=== PATIENT | female | born 2000 | race Hispanic/Latino ===

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

== ENCOUNTER 2018-04-06 13:38 | Emergency (ER) | payer SELFPAY ==
[~2018-04-06] VITALS: Ht 154.9 cm; Wt 72.6 kg
[~2018-04-06 13:38] MED LIST: MACROBID 100 M100 MG PO
--- NOTE | 2018-04-06 15:30 | ED GI/GU/ABDOMINAL COMPLAINT ---
History of Present Illness General Chief Complaint: Female Urogenital Problems Stated Complaint: VAGINAL DISCHARGE W/ODOR Source: patient Exam Limitations: no limitations Vital Signs & Intake/Output Vital Signs & Intake/Output Vital Signs Date Time Temp Pulse Resp B/P B/P Pulse O2 O2 Flow FiO2 Mean Ox Delivery Rate 04/06 1625 98.4 73 17 111/72 100 Room Air 04/06 1346 98.3 84 20 116/70 100 Room Air Allergies Coded Allergies: amoxicillin (Severe, THROAT SWELLING, RASH 04/12/17) Uncoded Allergies: DETERGENTS (UNKNOWN 08/09/12) Reconcile Medications Metronidazole (Flagyl) 500 MG TABLET 1 TAB PO BID vaginosis Triage Note: C/O VAGINAL D/C X 5 DAYS WITH ODOR Triage Nurses Notes Reviewed? yes ? n Is pt currently ? No Onset: Gradual Duration: day(s): Timing: recent history Quality/Severity: moderate HPI: 17yo female presents emergency department complaining of vaginal odor and discharge past few days. Patient reports increasing vaginal discharge described as reyes, mucus. Patient also reports itching. She is complaining of "fishy" odor. Patient reports changing her soaps recently. The patient reports dysuria on one occasion earlier this week which has since resolved. The patient is sexually active, one new partner, no use of protection. Patient denies abdominal pain, fevers, chills, joint pains. (Celena Egan) Past History Travel History Traveled to [place] past 21 day No Medical History Any Pertinent Medical History? 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 No (Celena Egan) Review of Systems Review of Systems Constitutional: Reports: no symptoms. EENTM: Reports: no symptoms. Respiratory: Reports: no symptoms. Cardiovascular: Reports: no symptoms. GI: Reports: no symptoms. Genitourinary: Reports: see HPI. Musculoskeletal: Reports: no symptoms. Skin: Reports: no symptoms. Neurological/Psychological: Reports: no symptoms. Hematologic/Endocrine: Reports: no symptoms. Immunologic/Allergic: Reports: no symptoms. All Other Systems: Reviewed and Negative (Celena Egan) Physical Exam Physical Exam General Appearance: well developed/nourished, no apparent distress, alert, awake Head: atraumatic, normal appearance Eyes: Bilateral: normal appearance. Ears, Nose, Throat, Mouth: hearing grossly normal Neck: normal inspection, supple, full range of motion Respiratory: no respiratory distress Gastrointestinal: normal bowel sounds, soft, non-tender, no organomegaly Pelvic: normal external exam, normal speculum exam, this discharge, no cervical motion tenderness Back: normal inspection, normal range of motion Extremities: normal range of motion Neurologic/Psych: awake, alert, oriented x 3 Skin: intact, normal color, warm/dry Core Measures ACS in differential dx? No Sepsis Present: No Sepsis Focused Exam Completed? No (Celena Egan) Progress Differential Diagnosis: intrauterine , PID/cervicitis, threatened AB, UTI/pyelo, bacterial vaginosis, candidiasis Plan of Care: Orders Procedure Date/time Status TRICHOMONAS 04/06 154 Complete POTASSIUM HYDROXIDE (EMERSON) 04/06 154 Complete GENITAL CULTURE 04/06 154 Active CHLAMYDIA-GC DNA PROBE 04/06 154 Active URINE 04/06 1348 Complete URINALYSIS 04/06 1348 Complete Laboratory Tests 04/06/18 1350: Urine Color YEL, Urine Clarity CLEAR, Urine pH 7.0, Ur Specific [place] 1.020, Urine Protein NEG, Urine Ketones NEG, Urine Nitrite NEG, Urine Bilirubin NEG, Urine Urobilinogen 0.2, Ur Leukocyte Esterase NEG, Ur Microscopic EXAM NOT REQUIRED, Urine Hemoglobin NEG, Urine Glucose NEG, Urine Test NEGATIVE Microbiology 04/06 1600 GENITAL: GC DNA Probe - RECD 04/06 1600 GENITAL: Chlamydia DNA Probe (PARKER) - RECD 04/06 1600 GENITAL: EMERSON Preparation - COMP 04/06 1600 GENITAL: Trichomonas Preparation - COMP 04/06 1600 GENITAL: Genital Culture - RECD 04/06 1520 GENITAL: GC DNA Probe - CAN Cancelled: DUPLICATE ORDER 04/06 152 GENITAL: Chlamydia DNA Probe (PARKER) - CAN Cancelled: DUPLICATE ORDER 04/06 152 GENITAL: EMERSON Preparation - CAN Cancelled: DUPLICATE ORDER 04/06 1520 GENITAL: Trichomonas Preparation - CAN Cancelled: DUPLICATE ORDER 04/06 1520 GENITAL: Genital Culture - CAN Cancelled: DUPLICATE ORDER Patient's symptoms are most consistent with bacterial vaginosis. We will metronidazole given these findings. STD culture is pending. No signs of PID on physical exam, no cervical motion tenderness. Patient agrees with the plan of care. Initial ED EKG: none (Celena Egan) Departure Departure Disposition: HOME OR SELF CARE Condition: Stable Clinical Impression Primary Impression: Bacterial vaginosis Referrals: Patient Has No Primary Care Dr (PCP/Family) Additional Instructions: Take full course of about antibiotics. Follow-up with your SLASHER SAWYER. Return with worsening symptoms or concerns. You cannot drink alcohol with taking this medication. We will call you in 2 days with the results of your culture. Please note that there might be incidental findings in your evaluation that are unrelated to the current emergency department visit. Please notify your primary care doctor about this emergency department visit in order to obtain and review all of the testing performed so that these incidental findings can be monitored as needed. If you had an x-ray performed, please understand that some fractures may not be seen on the initial set of x-rays. If your symptoms persist you might need a repeat set of x-rays to check for such a fracture. If you had a laceration evaluated, please understand that foreign bodies such as glass or wood may not be visible to the naked eye or on plain x-rays. If the wound becomes red, swollen, increasingly more painful or if there is any drainage from the wound, please have it reevaluated by a physician for the possibility of a retained foreign body. If you're unable to follow up as outlined in the discharge instructions please return to the emergency department. Thank you for choosing the [facility] Emergency Department for your care. It was a pleasure to serve you today. Departure Forms: Customer Survey General Discharge Information Prescriptions: Current Visit Scripts Metronidazole (Flagyl) 1 TAB PO BID #14 TAB (Celena Egan) PA/DROP FORGE HAND Co-Sign Statement Statement: ED Attending supervision documentation- [] I saw and evaluated the patient. I have also reviewed all the pertinent lab results and diagnostic results. I agree with the findings and the plan of care as documented in the PA's/DROP FORGE HAND's documentation. [X] I have reviewed the ED Record and agree with the PA's/DROP FORGE HAND's documentation. [] Additions or exceptions (if any) to the PAs/DROP FORGE HAND's note and plan are summarized below: [] (Royal Echavarria DO)
[2018-04-06] MEDS ORDERED: FLAGYL500 MG PO (16:09)
[2018-04-06 16:25] VITALS: BP 111/72
== END 2018-04-06 16:27 ==
LOC: ERH 13:38
DX: N76.0 Acute vaginitis (principal)
CPT/HCPCS: 87070; 81003; 81025; 87491; 87591

== ENCOUNTER 2018-08-10 18:32 | Emergency (ER) | payer SELFPAY ==
[~2018-08-10] VITALS: Ht 152.4 cm; Wt 73.9 kg
[~2018-08-10 18:32] MED LIST changes: +FLAGYL500 MG PO
[2018-08-10 18:49] VITALS: BP 113/75
--- NOTE | 2018-08-10 19:08 | ED GI/GU/ABDOMINAL COMPLAINT ---
History of Present Illness General Chief Complaint: Female Urogenital Problems Stated Complaint: VAGINAL PAIN PER PT Source: patient Exam Limitations: no limitations Vital Signs & Intake/Output Vital Signs & Intake/Output Vital Signs Date Time Temp Pulse Resp B/P B/P Pulse O2 O2 Flow FiO2 Mean Ox Delivery Rate 08/106 Room Air 08/10 1849 98.5 89 15 113/75 98 Room Air Room Air ED Intake and Output 08/11 0000 08/10 1200 Intake Total 0 Output Total Balance 0 Intake, Oral 0 Patient 163 lb Weight Weight Reported by Patient Measurement Method Allergies Coded Allergies: amoxicillin (Severe, THROAT SWELLING, RASH 08/10/18) Uncoded Allergies: DETERGENTS (UNKNOWN 08/09/12) Reconcile Medications Metronidazole (Flagyl) 500 MG TABLET 1 TAB PO BID bv Metronidazole (Flagyl) 500 MG TABLET 1 TAB PO BID vaginosis Triage Note: PT TO ED FOR "I THINK I HAVE CHLAMYDIA." REPORTS LOWER PELVIC PAIN EARLIER TODAY. Triage Nurses Notes Reviewed? yes ? n Is pt currently ? No Onset: Abrupt Duration: day(s): Timing: recent history Location: vaginal HPI: 17-year-old female comes into the emergency room for further evaluation of vaginal discharge and irritation. Symptoms been going on for days. Sexually active with 2 partners in the last 6 months. Denies any fever chills. Denies any abdominal pain. She comes in for further evaluation. (Amadou Ingram) Past History Travel History Traveled to [place] past 21 day No Medical History Any Pertinent Medical History? 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 No (Amadou Ingram) Review of Systems Review of Systems Constitutional: Reports: no symptoms. EENTM: Reports: no symptoms. Respiratory: Reports: no symptoms. Cardiovascular: Reports: no symptoms. GI: Reports: no symptoms. Genitourinary: Reports: see HPI. Musculoskeletal: Reports: no symptoms. Skin: Reports: no symptoms. Neurological/Psychological: Reports: no symptoms. Hematologic/Endocrine: Reports: no symptoms. Immunologic/Allergic: Reports: no symptoms. All Other Systems: Reviewed and Negative (Amadou Ingram) Physical Exam Physical Exam General Appearance: well developed/nourished, no apparent distress, alert Head: atraumatic, normal appearance Eyes: Bilateral: normal appearance. Ears, Nose, Throat, Mouth: moist mucous membrane Neck: normal inspection Respiratory: no respiratory distress Gastrointestinal: not examined Pelvic: no cerv. motion tender, discharge (White,), no cottage cheese discharge Back: normal inspection Extremities: normal range of motion Neurologic/Psych: awake, alert Skin: intact, normal color Core Measures ACS in differential dx? No Sepsis Present: No Sepsis Focused Exam Completed? No (Amadou Ingram) Progress Differential Diagnosis: PID, Trichomonas, gonorrhea and chlamydia, but Dr. burks, Plan of Care: Orders Procedure Date/time Status TRICHOMONAS 08/10 2102 Complete POTASSIUM HYDROXIDE (EMERSON) 08/10 2102 Complete GENITAL CULTURE 08/10 2102 Active CHLAMYDIA-GC DNA PROBE 08/10 2102 Active URINE 08/10 1848 Complete URINALYSIS 08/10 1848 Complete Laboratory Tests 08/10/18 191: Urine Color YEL, Urine Clarity CLEAR, Urine pH 6.0, Ur Specific [place] >= 1.030 , Urine Protein NEG, Urine Ketones TRACE H, Urine Nitrite NEG, Urine Bilirubin NEG, Urine Urobilinogen 1.0, Ur Leukocyte Esterase NEG, Ur Microscopic EXAM NOT REQUIRED, Urine Hemoglobin NEG, Urine Glucose NEG, Urine Test NEGATIVE Microbiology 08/10 2122 GENITAL: GC DNA Probe - RECD 08/10 2122 GENITAL: Chlamydia DNA Probe (PARKER) - RECD 08/10 2122 GENITAL: EMERSON Preparation - COMP 08/10 2122 GENITAL: Trichomonas Preparation - COMP 08/10 2122 GENITAL: Genital Culture - RECD Initial ED EKG: none (Amadou Ingram) Departure Departure Disposition: HOME OR SELF CARE Condition: Stable Clinical Impression Primary Impression: Vaginitis Referrals: Patient Has No Primary Care Dr (PCP/Family) Additional Instructions: Follow-up with your ATTORNEY GENERAL doctor. Return if any concerns worsening symptoms. No sexual activity until results are back. Please go over all results of today's visit with your primary care doctor. Contact your primary care doctor to let them know you were here in the emergency room. There may be nonspecific findings which may not be related to your visit today here in the emergency room but may require further evaluation and chronic monitoring by your primary care doctor. If you had a laceration today the chance of foreign body always remains. You should follow-up with your primary care doctor for recheck in 3-5 days for a wound check. If you had an x-ray done there is a chance that a fracture could have been missed on initial read and you should follow-up with your primary care doctor for repeat x-rays if symptoms persist. If your blood pressure was elevated here in the emergency room please have rechecked by [facility] primary care doctor within the next 48. If you were prescribed a narcotic here in the emergency room or any type of controlled substances you're not allowed to drive while taking this medication or operate any type of heavy machinery. Narcotics can make you feel lightheaded dizziness nausea and can cause constipation. You may need to pickle cutter a stool softener. Thank you for choosing [facility] emergency room. Please return to the emergency room immediately if you have any other concerns worsening of symptoms. Departure Forms: Customer Survey General Discharge Information Prescriptions: Current Visit Scripts Metronidazole (Flagyl) 1 TAB PO BID #14 TAB Comments 08/10/2018 10:19:27 PM Discharge not consistent with these infection. Patient was covered with Flagyl as well as ceftriaxone and azithromycin. Follow-up with soap drier tender. (Judd MEDEL,Amadou) PA/NURSING OFFICER Co-Sign Statement Statement: ED Attending supervision documentation- I saw and evaluated the patient. I have also reviewed all the pertinent lab results and diagnostic results. I agree with the findings and the plan of care as documented in the PA's/NURSING OFFICER's documentation. x I have reviewed the ED Record and agree with the PA's/NURSING OFFICER's documentation. [] Additions or exceptions (if any) to the PAs/NURSING OFFICER's note and plan are summarized below: [] (Benigno CERDA,Samuel)
[2018-08-10] MEDS ORDERED: FLAGYL500 MG PO (21:26)
== END 2018-08-10 21:56 ==
LOC: ERH 18:32
DX: N76.0 Acute vaginitis (principal)
CPT/HCPCS: 87070; 81003; 81025; 87491; 87591; 96372; J0696